=== PATIENT | female | born 1985 | race Caucasian/White ===

== ENCOUNTER 2017-04-29 18:24 | Emergency (ER) | payer MEDICAID ==
[2017-04-29 22:22] LABS: URINE BLOOD (Dip) POC 3+ (NEGATIVE); URINE GLUCOSE (Dip) POC Negative (NEGATIVE); URINE KETONES (Dip) POC Negative (NEGATIVE); URINE LEUKOCYTE EST (Dip) POC Trace (NEGATIVE); URINE NITRITE (Dip) POC Positive (NEGATIVE); URINE TOTAL PROTEIN POC 1+ (NEGATIVE)
[2017-04-29] MEDS: ACETAMINOPHEN 500 MG TAB PO (22:22)
[2017-04-29] MEDS: CEFTRIAXONE 1 GM INJ IM (22:23)
[2017-04-29] MEDS: LIDOCAINE 1% (MDV) 20 ML INJ SC (22:23)
[2017-04-29] MEDS: KETOROLAC 60 MG INJ IM (22:53)
[2017-04-29] MEDS: CEPHALEXIN 500 MG CAP PO (22:53)
== END 2017-04-29 23:44 | disposition home or self-care (01) ==
LOC: FTE 18:24
DX: N39.0 Urinary tract infection, site not specified (principal); R50.9 Fever, unspecified; R10.2 Pelvic and perineal pain
CPT/HCPCS: 81003; 87086; 96372; 99284-25